=== PATIENT | male | born 1990 | race Hispanic/Latino ===

== ENCOUNTER 2020-12-13 22:36 | Emergency (ER) | payer SELFPAY ==
--- OUTSIDE RECORDS SUMMARY | 2020-12-13 22:42 | XMS REPORT | Continuity of Care Document ---
:1990 Author Organization [facility] t Address [address] [place] [address] Care Team Providers Name Role Phone Haritha Petit Attending Clinician Doctor Unassigned, Name Attending Clinician Unavailable Owen Rosado Attending Clinician Problems This patient has no known problems. Allergies, Adverse Reactions, Alerts This patient has no known allergies or adverse reactions. Medications This patient has no known medications. Procedures This patient has no known procedures. Encounters Start End Encounter Admission Attending Care Care Encounter Source Date/Time Date/Time Type Type Clinicians Facility Department ID 2020-12-12 2020-12-13 Emergency Sandro Hawthorne [id number] 17:15:00 00:05:00 Haritha Hughes [id number] [place] [id number] [place] [id number] 2020-12-12 2020-12-12 Orders Doctor [facility]N [id number] 00:00:00 00:00:00 Only Unassigned, ROD [id number] [place] [facility] [id number] 2020-05-05 2020-05-05 Emergency Maribell MOESDRAS [id number] 11:57:00 14:35:00 Lyla Owen Hughes [id number] [place] [id number] [place] [id number] Results This patient has no known results.
[2020-12-13 23:47] LABS: Absolute Lymphocytes (CBC) 1.8 K/uL (0.7-4.9); Basophils % 0.2 % (0-1.3); Hematocrit 48.8 % (39.6-49.0); Lymphocytes % 14.2 % (15.3-44.8); MPV 9.3 fL (7.6-11.3); RBC Red Blood Cell Count 5.71 M/uL (4.33-5.43)
[2020-12-13 23:52] LABS: ALT/SGPT 34 U/L (12-78); AST/SGOT 14 U/L (15-37); Albumin 4.1 g/dL (3.4-5.0); Alkaline Phosphatase 121 U/L (45-117); BUN Blood Urea Nitrogen 15 mg/dL (7-18); Bicarbonate 27 mmol/L (21-32); Bilirubin Direct 0.3 mg/dL (0-0.2); Glucose Level 91 mg/dL (74-106); Lipase 47 U/L (73-393); Potassium 3.9 mmol/L (3.5-5.1); Protein, Total 8.3 g/dL (6.4-8.2); Sodium Level 137 mmol/L (136-145)
[2020-12-14] MEDS ORDERED: MEPERIDINE HCL 25 MG/ML SYR ONE (00:18)
[2020-12-14] MEDS ORDERED: ONDANSETRON 4 MG/2 ML VIAL ONE (00:18)
[2020-12-14] MEDS ORDERED: PANTOPRAZOLE 40 MG INJ ONE (00:19)
--- NOTE | 2020-12-14 01:52 | ER ---
Nurse's Notes [facility] Name: Antwon Zheng Jr Age: 30 yrs Sex: Male : 1990 Arrival Date: 12/13/2020 Time: 22:38 Bed 16 Private MD: Diagnosis: Gastritis and duodenitis Presentation: 12/13 23:05 Chief complaint: Patient states: Pt stated, "I've been having black poop since Saturday kg and throwing up blood tonight around 8 PM. I'm having a lot of stomach pain." URQ abdominal pain. 23:05 Method Of Arrival: Ambulatory kg 23:05 Coronavirus screen: Client denies travel out of the [place] in the last 14 days. At this kg time, unable to obtain information related to travel outside the [place] At this time, the client does not indicate any symptoms associated with coronavirus-19. Ebola Screen: Patient negative for fever greater than or equal to 101.5 degrees Fahrenheit, and additional compatible Ebola Virus Disease symptoms Patient denies exposure to infectious person. Patient denies travel to an Ebola-affected area in the 21 days before illness onset. Initial Sepsis Screen: Does the patient meet any 2 criteria? No. Patient's initial sepsis screen is negative. Does the patient have a suspected source of infection? No. Patient's initial sepsis screen is negative. Risk Assessment: Do you want to hurt yourself or someone else? Patient reports no desire to harm self or others. Onset of symptoms was December 09, 2020. 23:05 Acuity: RILEY 3 kg Triage Assessment: 23:35 GI: Reports. kg Historical: - Allergies: 23:29 No Known Allergies; kg - PMHx: 23:29 None; kg - PSHx: 23:29 None; kg - Immunization history:: Adult Immunizations not up to date, Client reports having NOT received the Covid vaccine. - Social history:: Smoking status: Patient denies any tobacco usage or history of. Patient uses street drugs, marijuana. - Family history:: not pertinent. - Hospitalizations: : No recent hospitalization is reported. Screenin:34 Abuse screen: Denies threats or abuse. Denies injuries from another. Nutritional kg screening: No deficits noted. Tuberculosis screening: No symptoms or risk factors identified. Fall Risk None identified. No fall in past 12 months (0 pts). No secondary diagnosis (0 pts). IV access (20 points). Ambulatory Aid- None/Bed Rest/Nurse Assist (0 pts). Gait- Normal/Bed Rest/Wheelchair (0 pts) Mental Status- Oriented to own ability (0 pts). Total Mueller Fall Scale indicates No Risk (0-24 pts). Assessment: 23:30 General: Appears in no apparent distress. Behavior is calm, cooperative, appropriate kg for age, quiet. Pain: Complains of pain in right upper quadrant Pain currently is 10 out of 10 on a pain scale. at worst was 10 out of 10 on a pain scale. level that patient reports is acceptable is 2 out of 10 on a pain scale. Quality of pain is described as burning, aching, Pain began Saturday Is continuous, Alleviated by nothing. Aggravated by eating. Neuro: No deficits noted. Level of Consciousness is awake, alert, obeys commands, Oriented to person, place, time, situation, Appropriate for age. Cardiovascular: No deficits noted. Heart tones S1 S2 Capillary refill < 3 seconds Pulses are 2+ in right radial artery and left radial artery. Respiratory: No deficits noted. Airway is patent Trachea midline Respiratory effort is even, unlabored, relaxed, Respiratory pattern is regular, Breath sounds are clear bilaterally. GI: Abdomen is flat, non-distended, Bowel sounds present X 4 quads. Abd is soft X 4 quads Abdomen is tender to palpation in right upper quadrant. 12/14 00:43 Reassessment: Pt went to CT. kg Vital Signs: 12/13 23:00 BP 122 / 89; Pulse 78; Resp 19; Pulse Ox 99% on R/A; kg 23:05 BP 122 / 89; Pulse 79; Resp 19; Temp 97.7(O); Pulse Ox 98% on R/A; Weight 83.01 kg (R); kg Height 5 ft. 4 in. (162.56 cm) (R); Pain 10; 23:30 BP 118 / 75; Pulse 64; Resp 18; Pulse Ox 97% on R/A; kg 12/14 00:00 BP 124 / 95; Pulse 66; Resp 18; Pulse Ox 99% on R/A; kg 00:30 BP 128 / 86; Pulse 66; Resp 20; Pulse Ox 97% on R/A; kg 12/13 23:05 Body Mass Index 31.41 (83.01 kg, 162.56 cm) kg ED Course: 12/13 22:38 Patient arrived in ED. cf2 22:58 Ramses Mac MD is Attending Physician. rn 23:10 Inserted saline lock: 20 gauge in right antecubital area, using aseptic technique. kg 23:17 Abigail Bruno, RN is Primary Nurse. kg 23:27 Triage completed. kg 23:34 Arm band placed on right wrist. kg 23:35 Patient has correct armband on for positive identification. Bed in low position. Call kg light in reach. Side rails up X2. 16 00:40 Report given to Report given to Darrel RN. kg 00:55 CT Abd/Pelvis - IV Contrast Only In Process Unspecified. EDMS 01:50 uRsty Ruiz MD is Referral Physician. rn 02:03 No provider procedures requiring assistance completed. IV discontinued, intact. jm8 Administered Medications: 00:01 Drug: ProTONIX (pantoprazole) 40 mg Route: IVP; Site: right antecubital; kg 02:03 Follow up: Response: No adverse reaction jm8 00:01 Drug: Zofran (Ondansetron) 4 mg Route: IVP; Site: right antecubital; kg 02:03 Follow up: Response: No adverse reaction jm8 00:01 Drug: Demerol (meperidine) 25 mg Route: IVP; Site: right antecubital; kg 02:03 Follow up: Response: No adverse reaction jm8 Outcome: 01:51 Discharge ordered by . rn 02:03 Discharged to home ambulatory, with family. jm8 02:03 Condition: good 02:03 Discharge instructions given to patient, family, Instructed on discharge instructions, follow up and referral plans. medication usage, Demonstrated understanding of instructions, follow-up care, medications, Prescriptions given X 3. 02:04 Patient left the ED. jm8 Signatures: Dispatcher [employer] EDMS Ramses Mac MD MD rn Frazier, Celesta cf2 Bill Guzman RN RN jm8 Abigail Bruno, ABHISHEK RN kg
--- NOTE | 2020-12-14 01:52 | EDPHYS ---
Physician Documentation [facility] Name: Antwon Zheng Jr Age: 30 yrs Sex: Male : 1990 Arrival Date: 12/13/2020 Time: 22:38 Bed 16 Private MD: ED Physician Ramses Mac HPI: 12/14 00:20 This 30 yrs old Male presents to ER via Ambulatory with complaints of rn Nausea/Vomiting, Decreased Appetite, Back Pain, ABDOMINAL PAIN, Black/Tarry Stools. 00:20 The patient presents to the emergency department with nausea, vomiting, diarrhea, rn abdominal pain. Onset: The symptoms/episode began/occurred 5 day(s) ago. Possible causes: unknown. The symptoms are aggravated by nothing. The symptoms are alleviated by nothing. Associated signs and symptoms: Pertinent positives: abdominal pain, GI bleeding, nausea, vomiting, Pertinent negatives: fever. Severity of symptoms: At their worst the symptoms were moderate in the emergency department the symptoms are unchanged. The patient has not experienced similar symptoms in the past. The patient has been recently seen by a physician:. Reports approx 5 days of nausea/vomiting/abd pain/diarrhea, dark black stool. + right sided abd pain and epigastric pain. Seen yesterday at [place] [facility], discharged as acid reflux. . Historical: - Allergies: 12/13 23:29 No Known Allergies; kg - PMHx: 23:29 None; kg - PSHx: 23:29 None; kg - Immunization history:: Adult Immunizations not up to date, Client reports having NOT received the Covid vaccine. - Social history:: Smoking status: Patient denies any tobacco usage or history of. Patient uses street drugs, marijuana. - Family history:: not pertinent. - Hospitalizations: : No recent hospitalization is reported. ROS: 12/14 00:20 Constitutional: Negative for fever, chills, and weight loss, Eyes: Negative for injury, rn pain, redness, and discharge, Neck: Negative for injury, pain, and swelling, Cardiovascular: Negative for chest pain, palpitations, and edema, Respiratory: Negative for shortness of breath, cough, wheezing, and pleuritic chest pain, Abdomen/GI: + abd pain/nausea/vomiting/diarrhea Back: Negative for injury and pain, : Negative for injury, bleeding, discharge, and swelling, MS/Extremity: Negative for injury and deformity, Skin: Negative for injury, rash, and discoloration, Neuro: Negative for headache, numbness, tingling, and seizure. Exam: 00:20 Constitutional: This is a well developed, well nourished patient who is awake, alert, rn and in no acute distress. Head/Face: Normocephalic, atraumatic. Eyes: Periorbital areas with no swelling, redness, or edema. ENT: Mucous membranes moist. Cardiovascular: Regular rate and rhythm. No pulse deficits. Respiratory: No increased work of breathing, no retractions or nasal flaring. Abdomen/GI: soft, + tender epigastric and right side of abdomen, no peritoneal signs Skin: Warm, dry MS/ Extremity: Pulses equal, no cyanosis. Neuro: Awake and alert, GCS 15 Vital Signs: 12/13 23:00 BP 122 / 89; Pulse 78; Resp 19; Pulse Ox 99% on R/A; kg 23:05 BP 122 / 89; Pulse 79; Resp 19; Temp 97.7(O); Pulse Ox 98% on R/A; Weight 83.01 kg (R); kg Height 5 ft. 4 in. (162.56 cm) (R); Pain 10/10; 23:30 BP 118 / 75; Pulse 64; Resp 18; Pulse Ox 97% on R/A; kg 12/14 00:00 BP 124 / 95; Pulse 66; Resp 18; Pulse Ox 99% on R/A; kg 00:30 BP 128 / 86; Pulse 66; Resp 20; Pulse Ox 97% on R/A; kg 12/13 23:05 Body Mass Index 31.41 (83.01 kg, 162.56 cm) kg MDM: 12/13 22:58 Patient medically screened. rn 12/14 01:49 Differential diagnosis: Nonspecific abd pain, gastritis, cholecystitis, pancreatitis, rn appendicitis, diverticulitis, viral gastroenteritis, gastroenteritis, gastric/duodenal ulcer, PUD. Data reviewed: vital signs, nurses notes, lab test result(s), radiologic studies, CT scan, and as a result, I will discharge patient. Counseling: I had a detailed discussion with the patient and/or guardian regarding: the historical points, exam findings, and any diagnostic results supporting the discharge/admit diagnosis, lab results, radiology results, the need for outpatient follow up, to return to the emergency department if symptoms worsen or persist or if there are any questions or concerns that arise at home. Response to treatment: the patient's symptoms have markedly improved after treatment, and as a result, I will discharge patient. Special discussion: I discussed with the patient/guardian in detail that at this point there is no indication for admission to the hospital. It is understood, however, that if the symptoms persist or worsen the patient needs to return immediately for re-evaluation. Based on the history and exam findings, there is no indication for further emergent testing or inpatient evaluation. I discussed with the patient/guardian the need to see the news videographer for further evaluation of the symptoms. ED course: Pt improved, stable vitals, ct abd no acute findings, has to f/u with GI for possible PUD. Return precautions given and understood. . 12/13 23:10 Order name: Basic Metabolic Panel; Complete Time: 01:12 12/13 23:10 Order name: CBC with Diff; Complete Time: 01: 12/13 23:10 Order name: Hepatic Function; Complete Time: 01:12 12/13 23:10 Order name: Lipase; Complete Time: 01:12 12/13 23:10 Order name: CT Abd/Pelvis - IV Contrast Only rn 12/13 23:10 Order name: Type And Screen; Complete Time: 01:12 12/13 23:10 Order name: IV Saline Lock; Complete Time: 00:41 12/13 23:10 Order name: Labs collected and sent; Complete Time: 00:41 12/13 23:10 Order name: NPO; Complete Time: 00:11 rn Administered Medications: 00:01 Drug: ProTONIX (pantoprazole) 40 mg Route: IVP; Site: right antecubital; kg 02:03 Follow up: Response: No adverse reaction jm8 00:01 Drug: Zofran (Ondansetron) 4 mg Route: IVP; Site: right antecubital; kg 02:03 Follow up: Response: No adverse reaction jm8 00:01 Drug: Demerol (meperidine) 25 mg Route: IVP; Site: right antecubital; kg 02:03 Follow up: Response: No adverse reaction jm8 Disposition: 12/14/20 01:51 Discharged to Home. Impression: Gastritis and duodenitis. - Condition is Stable. - Discharge Instructions: Gastritis, Adult, Peptic Ulcer, Food Choices for Peptic Ulcer Disease. - Prescriptions for Zofran ODT 4 mg Oral tablet,disintegrating - place 1 tablet by TRANSLINGUAL route every 8 hours As needed; 20 tablet. Protonix 40 mg Oral Tablet - take 1 tablet by ORAL route once daily; 30 tablet. Tramadol 50 mg Oral Tablet - take 1 tablet by ORAL route every 8 hours as needed; 15 tablet. - Medication Reconciliation Form, Thank You Letter, Antibiotic Education, Prescription Opioid Use form. - Follow up: Rusty Ruiz MD; When: As needed; Reason: Recheck today's complaints, Re-evaluation by your physician. - Problem is new. - Symptoms have improved. Signatures: Dispatcher [employer] EDMS Ramses Mac MD MD rn Malcaba, Joseph RN RN jm8 Abigail Bruno RN RN kg Corrections: (The following items were deleted from the chart) 02:04 01:51 12/14/2020 01:51 Discharged to Home. Impression: Gastritis and duodenitis. jm8 Condition is Stable. Forms are Medication Reconciliation Form, Thank You Letter, Antibiotic Education, Prescription Opioid Use. Follow up: Rusty Ruiz; When: As needed; Reason: Recheck today's complaints, Re-evaluation by your physician. Problem is new. Symptoms have improved. rn
[2020-12-14 02:10] VITALS: TEMP 97.7
[2020-12-14 02:15] VITALS: BP 128/86; O2SAT 97
--- NOTE | 2020-12-14 12:57 | RAD REPORT ---
EXAM DESCRIPTION: CT - Abdomen Pelvis W Contrast - 12/14/2020 6:41 am CLINICAL HISTORY: The patient is 30 years old and is Male; Abd pain;Epigastric pain TECHNIQUE: Axial computed tomography images of the abdomen and pelvis with intravenous contrast. S agittal and coronal reformatted images were created and reviewed. This CT exam was performed using one or more of the following dose reduction techniques: automated exposure control, adjustment of t he mA and/or kV according to patient size, and/or use of iterative reconstruction technique. COMPARISON: No relevant prior studies available. FINDINGS: Lung bases: Unremarkable. No mass. No consolidation. ABDOMEN: Liver: Unremarkable. No mass. Gallbladder and bile ducts: Unremarkable. No calcified stones. No ductal dilation. Pancreas: Unremarkable. No mass. No ductal dilation. Spleen: Unremarkable. No splenomegaly. Adrenals: Unremarkable. No mass. Kidneys and ureters: Multiple cysts in the kidneys bilaterally. ACR White Paper guidelines (Heryessy , et al. JACR 2018; 15(2):264-273) suggest no follow-up is necessary. No hydronephrosis. Stomach and bowel: Scattered colonic diverticula without evidence of diverticulitis. No obstruction. PELVIS: Appendix: The appendix is normal. Bladder: Unremarkable. No mass. Reproductive: Unremarkable as visualized. ABDOMEN and PELVIS: Intraperitoneal space: Unremarkable. No free air. No significant fluid collection. Bones/joints: No acute fracture. No dislocation. Soft tissues: Unremarkable. Vasculature: Unremarkable. No abdominal aortic aneurysm. Lymph nodes: Unremarkable. No enlarged lymph nodes. IMPRESSION: No acute findings in the abdomen or pelvis. Electronically signed by: Felix Trammell MD 12/14/2020 1:07 AM CDT Due to temporary technical issues with the PACS/Fluency reporting system, reports are being signed by the in house radiologists without review as a courtesy to insure prompt reporting. The interpreting radiologist is fully responsible for the content of the report.
== END 2020-12-14 02:04 | disposition home or self-care (01) ==
LOC: ER 22:36
DX: K29.80 Duodenitis without bleeding (principal); K29.70 Gastritis, unspecified, without bleeding
CPT/HCPCS: 36415; 74177; 80048; 80076; 83690; 85025; 86850; 86900; 86901; Q9967